=== PATIENT | male | born 1995 | race African-American/Black ===

== ENCOUNTER 2020-04-08 11:59 | Inpatient (IN) | payer OTHER ==
[~2020-04-08] VITALS: Ht 190.5 cm; Wt 103.7 kg
[2020-04-08] MEDS ORDERED: HALOPERIDOL LACTATE 5 MG/ML INJ VIAL IM ONE (13:15)
[2020-04-08] MEDS ORDERED: LORazepam 2MG/ML-1ML VIAL IV ONE (13:15)
[2020-04-08] MEDS ORDERED: diphenhdrAMINE HCL 50 MG/1 ML VL IV ONE (13:15)
[2020-04-08 13:48] LABS: Basophils # (auto) 0.1 10 ^3/uL (0-0.2); Basophils % (auto) 0.9 % (0.0-2.0); Eosinophils # (auto) 0.1 10 ^3/uL (0-0.8); Eosinophils % (auto) 0.6 % (0.0-7.0); Hematocrit 50.2 % (41.0-53.0); Hemoglobin 17.1 g/dL (13.5-17.5); Lymphocytes # (auto) 1.9 10 ^3/uL (0.4-5.4); Lymphocytes % (auto) 18.9 % (10.0-50.0); Mean Corpuscular Hgb Conc. 34.1 g/dL (32.0-36.0); Monocytes % (auto) 10.3 % (0.0-12.0); Neutrophils # (auto) 6.9 10 ^3/uL (1.6-8.6); Neutrophils % (auto) 69.3 % (37.0-80.0); Nucleated Red Blood Cells % 0.3 %; Platelet Count (auto) 215 10^3/uL (140-450); Red Blood Cells 5.91 10^6/uL (4.5-5.90); Red Cell Distribution Width 13.6 % (11.8-14.3); White Blood Cell 9.9 10^3/uL (4.4-10.8)
[2020-04-08 14:04] LABS: Albumin 4.4 g/dL (3.4-5.0); Calcium 9.5 mg/dL (8.5-10.1); Potassium 3.5 mmol/L (3.5-5.1)
[2020-04-08 14:07] LABS: BUN/Creatinine Ratio 9.6; Bilirubin, Total 2.1 mg/dL (0.2-1.0); Total Protein 8.8 g/dL (6.4-8.2)
[2020-04-08] MEDS ORDERED: NITROGLYCERIN 0.4 MG SL TAB SL PRN (14:30)
[2020-04-08] MEDS ORDERED: MORPHINE SULF INJ 2 MG/ML SYRINGE 1ML IV PRN (14:30)
[2020-04-08] MEDS: LORazepam 2MG/ML-1ML VIAL IV PRN (15:05)
--- NOTE | 2020-04-08 15:27 | NUR ---
Received a report from SMOOTH BROWN.
[2020-04-08 15:38] VITALS: BP 150/91
--- NOTE | 2020-04-08 16:07 | NUR ---
MS admit from ER LIA CHRISTIANSON admitted to tele/MS after SBAR received. Patient oriented to SAM ARDON, primary RN, unit, room, bed, and unit policies regarding patient care and visiting hours. Patient weighed by bed scale and encouraged to call if they need something. All questions and concerns addressed, patient verbalized understanding. Note:
--- NOTE | 2020-04-08 16:10 | NUR ---
Received patient from ER, patient is very drowsy, sleeping and not answer the question. No respiratory distress noted. Skin is warm and dry to touch. Denied pain. All limbs with cuff, placed OptiForm for protection. Patient is NPO, tolerated well. Patient has two security guards at bedside. Will continue to monitor.
[2020-04-08] MEDS: D5W/SOD CHL 0.45% 1,000 ML IV SCH (16:59)
--- NOTE | 2020-04-08 16:59 | NUR ---
Wound photos taken prior admission.
[2020-04-08 17:00] VITALS: BP 156/91
[2020-04-08 18:04] LABS: Urine Bacteria FEW /hpf (None Seen); Urine Blood 1+ /uL (Negative); Urine Hyaline Cast MANY /lpf (0 - 2); Urine Specific Gravity 1.018 (1.001-1.035); Urine WBC 6 /hpf (0 - 3)
[2020-04-08 18:07] LABS: Alcohol, Urine < 3.0 mg/dL (0-10); Amphetamine Screen, Urine NEGATIVE (NEGATIVE); Barbiturate Scree,Urine NEGATIVE (NEGATIVE); Benzodiazephine Screen, Urine NEGATIVE (NEGATIVE); Cannabinoid Screen, Urine NEGATIVE (NEGATIVE); Cocaine Screen, Urine NEGATIVE (NEGATIVE); Opiate Scree,Urine NEGATIVE (NEGATIVE); Phencyclidine Screen, Urine NEGATIVE (NEGATIVE)
--- NOTE | 2020-04-08 19:20 | NUR ---
Went to see patient and spoke with the two guards in room and they stated that patient has been sleep since 1600. Patient has spit guard bag on head. Bed is locked in lowest position with side rails up x2. Patient is shackled to bed via metal cuffs. Will continue to monitor.
[2020-04-08 21:50] VITALS: BP 138/80
[2020-04-09] MEDS: D5W/SOD CHL 0.45% 1,000 ML IV SCH ×5 (02:20→23:50)
--- NOTE | 2020-04-09 04:21 | NUR ---
WENT TO PATIENT ROOM FOR LINEN CHANGE. PATIENT WOKE UP AND AFTER SPEAKING WITH HIM I DETERMINED HE IS AOX4. I ASKED PATIENT IF IT IS OKAY TO REMOVE SPIT GUARD. PATIENT RESPONDED YES ITS OKAY TO REMOVE. WILL CONTINUE TO MONITOR.
[2020-04-09 05:00] VITALS: BP 142/80
--- NOTE | 2020-04-09 07:20 | NUR ---
Assumed care/patient confused Assumed care of patient AOx1. No pain reported at this time. No s/s of distress noted. Patient updated on POC, reinforcement will be needed. Bed in lowest locked position, call light within reach. Guards at bedside for security. Will continue care.
[2020-04-09 08:57] VITALS: BP 138/72
--- NOTE | 2020-04-09 10:00 | NUR ---
Refusing IV fluids Patient refusing scheduled IV fluids at this time. Per patient he does not want to be connected to a machine. Patient educated on why he is getting fluids. Patient continues to refuse at this time.
[2020-04-09] MEDS: LORazepam 2MG/ML-1ML VIAL IV PRN (10:38)
--- NOTE | 2020-04-09 10:39 | NUR ---
Patient agitated Screams from patient were heard at nurses station. When this RN walked in room patient was yelling stating [employer] guards at bedside were trying to hurt him and cuff him up. Patient noted to be confused at this time and states " I don't even know what I'm doing here, or where I'm at. I don't belong here. I'm supposed to be in [place] with my and kids". Attempt to re orient patient at this time was made without success. Patient asked to go back to bed and allow guards to cuff him up as he is here as an inmate and there's security protocols we need to follow. Patient states "I'm not an inmate. I'm not supposed to be here, ya'll must be confusing me for someone else." Patient was secured in bed with help of federal guards and hospital security staff. Will medicate at this time with Ativan 1mg IV q1hr for agitation and continue to monitor.
--- NOTE | 2020-04-09 13:00 | NUR ---
unable to obtain 1300 VS. Patient refusing VS at this time and getting agitated. Will attempt to obtain VS at a later time.
[2020-04-09 16:37] VITALS: BP 140/73
--- NOTE | 2020-04-09 17:10 | NUR ---
Fluids held at this time. Left arm swelling noticed upon hourly rounds. Security cuff was noted to be too tight and was causing constriction. Guards were asked if they could remove the cuff from that arm and switch to left arm. Will allow right arm to rest. Ice pack provided.
--- NOTE | 2020-04-09 21:22 | NUR ---
PATIENT PULLED OUT IV. EDUCATION PROVIDED. PATIENT REFUSES TO HAVE ANOTHER IV PLACED. NO TRAUMA NOTED.
[2020-04-09 22:00] VITALS: BP 121/76
[2020-04-10 05:00] VITALS: BP 129/77
--- NOTE | 2020-04-10 05:13 | NUR ---
PATIENT REMOVED PADDING UNDER HANDCUFF. PATIENT NOW COMPLAINING OF PAIN IN WRIST AREA, PATIENT EDUCATED ON PADDING SKIN UNDER HANDCUFF TO PREVENT SKIN BREAKDOWN. PATIENT REFUSES TO HAVE AREA PADDED.
[2020-04-10 05:42] LABS: Potassium 3.3 mmol/L (3.5-5.1)
[2020-04-10] MEDS: D5W/SOD CHL 0.45% 1,000 ML IV SCH ×3 (05:42→19:50)
[2020-04-10 06:01] LABS: Albumin 3.5 g/dL (3.4-5.0); Bilirubin, Total 1.2 mg/dL (0.2-1.0); Total Protein 6.9 g/dL (6.4-8.2)
--- NOTE | 2020-04-10 07:00 | NUR ---
patient refused new IV placement, patient just gets angry when we try to discuss IV placement.
[2020-04-10 08:41] VITALS: BP 162/86
[2020-04-10 09:30] VITALS: BP 145/76
--- NOTE | 2020-04-10 09:56 | NUR ---
PATIENT HAD INCONTINENCE EPISODE, PATIENT HAD BM ALL IN BED. PATIENT HAVE HIMSELF A BEDBATH AND CONTINUED TO ASK TO TAKE SHOWER, HOWEVER LAST TIME PATIENT TRIED TO TAKE A SHOWER HE ATTEMPTED TO FLEE THE BUILDING. PATIENT NOT GRANTED PERMISSION TO SHOWER. PATIENT ORIENTED ONLY TO SELF AT HIS TIME. Addendum: 04/10/20 at 1003 by Anahi Carter RN TYPO.. PATIENT GAVE HIMSELF A BEDBATH
--- NOTE | 2020-04-10 10:00 | NUR ---
patient continues to be confused, tells officers that he wants his girlfriend to come pick him up, and patient makes bizarre comments, called me by different names even though he's been corrected numerous times.
--- NOTE | 2020-04-10 12:00 | NUR ---
patient still refuses IV, when I asked if he would be willing to take a pill for anxiety he started rambling and getting angry again and said hr would not take any medications. Officers attempted to talk to him calmly but patients was not willing to discuss medication he refused.
--- NOTE | 2020-04-10 13:00 | NUR ---
PT REFUSED 1300 VITALS, LIZ BROWN MADE AWARE.
[2020-04-10] MEDS ORDERED: LORazepam 2MG/ML-1ML VIAL IV PRN (14:00)
--- NOTE | 2020-04-10 17:00 | NUR ---
PT REFUSED 1700 VITALS, LIZ BROWN NOTIFIED.
[2020-04-10] MEDS ORDERED: LORazepam 2MG/ML-1ML VIAL IM PRN (20:30)
--- NOTE | 2020-04-10 20:49 | NUR ---
Patient severely agitated, screaming, and being combative. Patient is experiencing paranoid behavior and thinks he is at home. Patient is alert and oriented to self. Dr. Javon martinez, new orders received. MD aware patient is refusing IV access. Patient agreeable to receiving IM ativan. Medication administered as ordered, will continue care.
--- NOTE | 2020-04-10 21:18 | NUR ---
Dr. Javon martinez.
[2020-04-10 22:34] VITALS: BP 155/80
[2020-04-10 22:37] VITALS: BP 155/80
--- NOTE | 2020-04-10 23:00 | NUR ---
DR. MCGHEE PAGED FOUR TIMES. AWAITING CALL BACK.
[2020-04-11] MEDS: D5W/SOD CHL 0.45% 1,000 ML IV SCH ×2 (02:30→09:10)
[2020-04-11 05:07] VITALS: BP 155/89
--- NOTE | 2020-04-11 07:30 | NUR ---
Opening Shift Note Assuming care of patient at this time. Patient is resting in bed with eyes closed. No distress noted. Respirations are even and unlabored. Bed is locked and lowered with side rails up x2. Guards at bedside. Will continue to round hourly and as needed. Call light within reach. Will continue to round hourly and as needed.
--- NOTE | 2020-04-11 11:30 | NUR ---
Shower Patient up to shower. Bed changed at this time.
--- NOTE | 2020-04-11 13:13 | NUR ---
Discharge Discharge instructions given as ordered. Encourage to follow up with fpc's MD as instructed. All questions and concerns addressed. Patient verbalized understanding. Medication reconciliation form completed and copy given to patient. No IV access, as patient has previously pulled out IV catheter. Guards at bedside, awaiting transport for pick-up. No distress noted at time of departure.
[2020-04-11 13:53] LABS: Hepatitis A Ab IgM Negative; Hepatitis B Core IgM Negative; Hepatitis B Surface Antigen Negative (Negative); Hepatitis C Antibody Negative (Negative)
== END 2020-04-11 13:00 | DRG 641 ==
LOC: ER 11:59 → EEVIPCON 11:59 → OVERFLOW 12:00 → CENTRAL 15:37
PROVIDERS: ADMIT Internal Medicine; ATTEND Internal Medicine
DX: E86.0 Dehydration (principal); R45.1 Restlessness and agitation; K75.9 Inflammatory liver disease, unspecified; N18.9 Chronic kidney disease, unspecified; T50.905A Adverse effect of unspecified drugs, medicaments and biological substances, initial encounter; R41.82 Altered mental status, unspecified; F17.210 Nicotine dependence, cigarettes, uncomplicated; Z20.828 Contact with and (suspected) exposure to other viral communicable diseases; Z78.1 Physical restraint status
CPT/HCPCS: 36415; 70450; 80053; 80074; 80307; 81001; 82550; 85025; 87426; 96372; 96374; 96375; G0378